=== PATIENT | female | born 1975 | race Caucasian/White ===

== ENCOUNTER → 2017-07-19 | Outpatient (CLI) | payer BC ==
--- NOTE | 2017-07-21 10:49 | KCIC ---
DATE: 07/19/2017 EXAM: MAMMO CLARENCE SCREENING BILATERAL HISTORY: Routine screening COMPARISON: 09/27/2014, 08/24/2013 The breast parenchyma is dense, which could reduce the sensitivity of mammography. Breast parenchyma level density D. FINDINGS: 2-D and 3-D tomosynthesis imaging was performed in CC and MLO projections. There is a small nodule measuring approximately 6 mm in the inferomedial aspect of left breast as best seen on CC tomogram #7 and oblique tomogram #12. This may have been present on the previous study but was less clearly defined due technical factors including the greater sensitivity of the current tomographic images. There are unchanged microcalcifications in both breasts. These are most prominent superiorly in the left breast. Their stability suggests a benign etiology. IMPRESSION: 1. Small left breast nodule as described above. Sonographic evaluation is suggested. 2. Stable right mammograms BI-RADS CATEGORY: 0 INCOMPLETE: NEEDS ADDITIONAL IMAGING EVALUATION AND/OR PRIOR MAMMOGRAMS FOR COMPARISON. RECOMMENDED FOLLOW-UP: ADD ADDITIONAL IMAGING PQRS compliance statement: Patient information was entered into a reminder system with a target due date for the next mammogram. Mammography is a sensitive method for finding small breast cancers, but it does not detect them all and is not a substitute for careful clinical examination. A negative mammogram does not negate a clinically suspicious finding and should not result in delay in biopsying a clinically suspicious abnormality. "Our facility is accredited by the [employer] Mammography [employer]."
== END | disposition home or self-care (01) ==
LOC: KCIC MAMMO 11:53
PROVIDERS: ATTEND Obstetrics & Gynecology
DX: Z12.31 Encounter for screening mammogram for malignant neoplasm of breast (principal)
CPT/HCPCS: 77063; G0202; 77067

== ENCOUNTER → 2017-07-23 | Outpatient (CLI) | payer BC ==
--- NOTE | 2017-07-23 13:02 | RAD ---
Left breast ultrasound, 07/23/2017: History: Breast nodule A targeted ultrasound exam was performed inferomedially, based on the 3-D mammographic findings from 07/19/2017. There is a 4 mm superficial nodule at the 6:00 location in the left breast located approximately 2 cm in the nipple. Its margins are somewhat ill-defined. There is posterior acoustic shadowing. This is probably a small solid nodule. This appears to correspond in location to the mammographic finding. Incidentally noted at the 10:00 location in the left breast approximately 2 cm from the nipple is a 4 x 6 x 8 mm predominantly cystic nodule. Its margins are smooth. There are low level internal echoes with a possible septation. The appearance is that of a complicated cyst. Also, at the 9:30 location in the left breast approximately 3 cm from the nipple there is an additional, predominantly cystic nodule with faint internal echoes. It measures 2 x 3 x 6 mm. This is also probably a complicated cyst. IMPRESSION: 1. Small, superficial solid-appearing nodule at the 6:00 location which appears to correspond to the mammographic abnormality. Ultrasound-guided biopsy is suggested. 2. Two additional benign-appearing nodules at the 10:00 and 9:30 location as described above are probably complicated cyst. Sonographic surveillance of these nodules is suggested. BI-RADS 4-suspicious abnormality. Note: The findings were given to the patient at the time of the exam and she is aware of the recommendation for biopsy. She will follow-up with the ordering provider.
== END | disposition home or self-care (01) ==
LOC: KCIC US 11:34
PROVIDERS: ATTEND Obstetrics & Gynecology
DX: N63.20 Unspecified lump in the left breast, unspecified quadrant (principal)
CPT/HCPCS: 76641

== ENCOUNTER → 2020-07-19 | Outpatient (CLI) | payer BC ==
--- NOTE | 2020-07-19 15:15 | KCIC ---
Bilateral digital screening mammograms with 3-D tomosynthesis: Reason for examination: Routine screening. Comparison is made to previous studies dated back to 08/24/2013. Bilateral mammograms in CC and oblique projections were obtained with 2-D imaging and 3-D tomosynthesis imaging on a Siemens Inspiration unit and reviewed on the workstation. Interpretation was made with the benefit of CAD. The skin and nipples show no abnormalities. No abnormal axillary lymph nodes are seen. The breast parenchyma is extremely dense. (Breast density: Category D.) There are no dominant masses, suspicious calcifications or architectural distortion. Biopsy clip remains present on the left. Impression: No evidence of malignancy. Recommend routine screening. Your patient's mammogram demonstrates that she has dense breast tissue (breast density category C or D), which could hide abnormalities, and if she has other risk factors for breast cancer that have been identified, she might benefit from supplemental screening tests that may be suggested by you as her ordering physician. Dense breast tissue, in and of itself, is a relatively common condition. Therefore, this information is not provided to cause undue concern, but rather to raise your awareness and to promote discussion with your patient regarding the presence of other risk factors, in addition to dense breast tissue. Your patient's mammography results will be sent to her. BI-RAD Category 1: Negative. "Our facility is accredited by the [employer] Mammography [employer]." This patient's information has been entered into a reminder system for the patient to be notified with the results of her examination and a target date for the next mammogram. Electronically signed by: Viviana Tse MD (07/19/2020 3:12 PM) [id number]
== END ==
LOC: KCIC MAMMO 10:27
PROVIDERS: ATTEND Obstetrics & Gynecology
DX: Z12.31 Encounter for screening mammogram for malignant neoplasm of breast (principal)
CPT/HCPCS: 77063; 77067

== ENCOUNTER → 2021-07-23 | Outpatient (CLI) | payer SELFPAY ==
--- NOTE | 2021-07-23 11:35 | KCIC ---
Bilateral digital screening mammograms with 3-D tomosynthesis: Reason for examination: Routine screening. Comparison is made to previous studies dated back to 08/24/2013. Bilateral mammograms in CC and oblique projections were obtained with 2-D imaging and 3-D tomosynthes is imaging on a Siemens Inspiration unit and reviewed on the workstation. Interpretation was made yaneth dominguez the benefit of CAD. The skin and nipples show no abnormalities. No abnormal axillary lymph nodes are seen. The breast par enchyma is extremely dense. (Breast density: Category D.) There are no dominant masses, suspicious ca lcifications or architectural distortion. There is a single coarse calcification in the upper outer q uadrant of the right breast. Biopsy clip remains present on the left. Impression: No evidence of malignancy. Recommend routine screening. Your patient's mammogram demonstrates that she has dense breast tissue (breast density category C or D), which could hide abnormalities, and if she has other risk factors for breast cancer that have bee n identified, she might benefit from supplemental screening tests that may be suggested by you as her ordering physician. Dense breast tissue, in and of itself, is a relatively common condition. Therefo re, this information is not provided to cause undue concern, but rather to raise your awareness and t o promote discussion with your patient regarding the presence of other risk factors, in addition to d ense breast tissue. Your patient's mammography results will be sent to her. BI-RAD Category 2: Benign. "Our facility is accredited by the [employer] Mammography Program." This patient's information has been entered into a reminder system for the patient to be notified wit h the results of her examination and a target date for the next mammogram. Electronically signed by: Viviana Tse MD (07/23/2021 11:33 AM) [email or web address]
== END ==
LOC: KCIC MAMMO 09:04
PROVIDERS: ATTEND Obstetrics & Gynecology
DX: Z12.31 Encounter for screening mammogram for malignant neoplasm of breast (principal)
CPT/HCPCS: 77063; 77067